=== PATIENT | male | born 1985 | race Caucasian/White ===

== ENCOUNTER 2016-11-06 16:18 | Emergency (ER) | payer MEDICAID, OTHER ==
[~2016-11-06] VITALS: Ht 175.3 cm; Wt 90.4 kg
[2016-11-06 16:25] VITALS: BP 114/75
--- NOTE | 2016-11-06 17:05 | NUR ---
Patient ambulated to bed 8. RN evaluating patient at bedside.
--- NOTE | 2016-11-06 17:20 | NUR ---
Dr. Lynn evaluating patient at bedside.
--- NOTE | 2016-11-06 17:26 | NUR ---
31/M PRESENT TO ER C/O LT TESTICULAR PAIN x 2 DAYS.HX: NO HISTORY . DENIES N/V/D; SKIN IS PINK/WARM/DRY; AAOX4 WITH EVEN AND STEADY GAIT; LUNGS CLEAR BL; HR EVEN AND REGULAR; PT DENIES ANY FEVER, CP, SOB, OR COUGH AT THIS TIME; PATIENT STATES PAIN OF 8/10 AT THIS TIME; VSS; PATIENT POSITIONED FOR COMFORT; HOB ELEVATED; BEDRAILS UP X2; BED DOWN. ER MD MADE AWARE OF PT STATUS.
[2016-11-06 18:06] VITALS: BP 118/76
== END 2016-11-06 18:05 | disposition home or self-care (01) ==
LOC: MED 16:18
DX: N43.3 Hydrocele, unspecified (principal)

== ENCOUNTER 2024-01-09 16:31 | Emergency (ER) | payer MEDICAID ==
[~2024-01-09] VITALS: Ht 172.7 cm; Wt 96.3 kg
[2024-01-09 16:38] VITALS: BP 124/76; PULSE 94; RESP 18; TEMP 98.2; O2SAT 96
[2024-01-09 16:46] VITALS: O2SAT 94
[2024-01-09] MEDS ORDERED: IBUP-1842 PO (17:03)
[2024-01-09] MEDS ORDERED: ACET-10509 PO (17:03)
[2024-01-09] MEDS: ACETAMINOPHEN EXTRA STRENGTH 500 MG TAB PO ONE (17:38)
[2024-01-09 18:12] VITALS: BP 121/74; PULSE 89; RESP 18; TEMP 98.2; O2SAT 94
== END 2024-01-09 18:32 | disposition home or self-care (01) ==
LOC: MED 16:31
DX: R59.0 Localized enlarged lymph nodes (principal); Z79.1 Long term (current) use of non-steroidal anti-inflammatories (NSAID)
CPT/HCPCS: 70450; 99284